=== PATIENT | male | born 1955 | race Caucasian/White ===

== ENCOUNTER 2019-08-06 06:48 | Inpatient (IN) | payer BC, MEDICAID, MEDICARE ==
[~2019-08-06] VITALS: Ht 177.8 cm; Wt 123.6 kg
[~2019-08-06 06:48] MED LIST: APIX2.5T PO; FERR325T28 PO; HYDR25TA4 PO; MULT-1085 PO; OSC500T PO; VALS40TA2 PO
[2019-08-06] MEDS ORDERED: normal saline 1000ml 1,000 ML IV ONE (07:29)
[2019-08-06] MEDS ORDERED: normal saline 1000ML IV soln IVB ONE (07:30)
[2019-08-06 08:27] LABS: BASOPHILS % (AUTO) 0.1 % (0-1); EOSINOPHILS % (AUTO) 0.1 % (0-6); HEMATOCRIT 44.1 % (42.0-52.0); LYMPHOCYTES # (AUTO) 0.4 X10'3 (1.1-4.8); LYMPHOCYTES % (AUTO) 2.9 % (21-51); MEAN CORPUSCULAR HEMOGLOBIN 30.2 PG (27.0-31.0); MEAN CORPUSCULAR HGB CONC 33.9 g/dL (33.0-36.5); MEAN CORPUSCULAR VOLUME 89.1 FL (78-98); MEAN PLATELET VOLUME 7.6 FL (7.4-10.4); MONOCYTES # (AUTO) 0.4 X10'3 (0-0.9); MONOCYTES % (AUTO) 3.2 % (2-12); NEUTROPHILS # (AUTO) 12.2 X10'3 (1.8-7.7); NEUTROPHILS % (AUTO) 93.7 % (42-75); PLATELET COUNT 198 X10'3 (140-440); RED BLOOD COUNT 4.95 X10'6 (4.70-6.10); RED CELL DISTRIBUTION WIDTH 14.2 % (11.5-14.5)
[2019-08-06 08:42] LABS: ALANINE AMINOTRANSFERASE 24 U/L (12-78); ALBUMIN 3.8 G/DL (3.4-5.0); ALBUMIN/GLOBULIN RATIO 1.1 (1.1-1.5); ALKALINE PHOSPHATASE 80 IU/L (46-116); ANION GAP 8 (8-16); ASPARTATE AMINO TRANSFERASE 16 U/L (10-37); BILIRUBIN,TOTAL 0.6 MG/DL (0.1-1.0); BLOOD UREA NITROGEN 21 MG/DL (7-18); BUN/CREATININE RATIO 18.6 (5.4-32.0); C-REACTIVE PROTEIN 0.49 MG/DL (0.0-0.5); CHLORIDE 105 MMOL/L (99-107); CREATININE 1.13 MG/DL (0.60-1.10); GLUCOSE 109 MG/DL (70-104); LIPASE 163 U/L (73-393); POTASSIUM 3.6 MMOL/L (3.5-5.1); SODIUM 141 MMOL/L (135-145); TOTAL CARBON DIOXIDE 28.5 MMOL/L (24-32); TOTAL PROTEIN 7.3 G/DL (6.4-8.2); eGFR 65 ML/MIN
[2019-08-06] MEDS ORDERED: ceFOXitin 1 GM/D5W 50mL IVPB 50 ML IV SCH (08:44)
[2019-08-06] MEDS ORDERED: metroNIDAZOLE-Flagyl 500mg/NS 100 ML IV SCH (08:45)
[2019-08-06 10:26] LABS: CLARITY,URINE CLEAR (Clear); COLOR,URINE YELLOW (Yellow); GLUCOSE, URINE NEGATIVE (Neg); KETONES,URINE NEGATIVE (Neg); LEUKOCYTE ESTERASE ,URINE NEGATIVE (Neg); NITRITES, URINE NEGATIVE (Neg); OCCULT BLOOD,URINE NEGATIVE (Neg); PROTEIN,URINE TRACE mg/dl (Neg)
[2019-08-06 10:27] LABS: UA COLLECTION TYPE CLN CATCH MIDSTREAM
[2019-08-06 10:41] LABS: MUCUS STRANDS MANY /LPF (Neg); SQUAMOUS EPITHELIAL CELL,UR MODERATE /LPF (FEW)
[2019-08-06 10:45] LABS: RBC,URINE 0-2 /HPF (0-2)
[2019-08-06 10:46] LABS: BACTERIA,URINE 2+ /HPF (Neg); CAL OXALATE CRYSTALS 1+ /HPF (NEGATIVE)
[2019-08-06] MEDS ORDERED: morphine 4 MG/ML inj SYRINge IV ONE (11:10)
[2019-08-06] MEDS ORDERED: metoclopramide 5 mg/ml inj IV ONE (11:10)
[2019-08-06] MEDS ORDERED: LOSA100T57 PO (12:44)
[2019-08-06] MEDS ORDERED: HCTZ25T PO (12:44)
[2019-08-06] MEDS ORDERED: mag hydrox/Alum hydrox/simeth 30ml oral suspension PO PRN (13:30)
[2019-08-06] MEDS ORDERED: ondansetron/PF 4mg/2ml inj IV PRN (13:30)
[2019-08-06] MEDS ORDERED: acetaminophen 325mg tablet PO PRN (13:30)
[2019-08-06] MEDS ORDERED: magnesium hydroxide 30ml (MOM) UD suspension PO PRN (13:30)
[2019-08-06] MEDS ORDERED: morphine 2 MG/ML inj. syringe IV PRN ×2 (13:30)
[2019-08-06] MEDS: normal saline 1000ml 1,000 ML IV SCH ×2 (14:35→19:55)
[2019-08-06] MEDS: levoFLOXACIN-Levaquin 750MG/D5 150 ML IV SCH (14:39)
--- NOTE | 2019-08-06 15:04 | NUR ---
RELIEVING RN FOR BREAK, PT IS RESTING QUIETLY ON ROBER, AT BEDSIDE, FLU SWAB DONE AND SENT TO LAB
--- NOTE | 2019-08-06 17:35 | NUR ---
Patient in room [facility]. I have received report from Shannon CEE and had the opportunity to ask questions and assume patient care.
--- NOTE | 2019-08-06 18:25 | NUR ---
Patient in room [facility]. I have received report from VARINDER CEE and had the opportunity to ask questions and assume patient care. Addendum: 08/06/19 at 1904 by Irasema Cavanaugh RN Amended: Links added.
[2019-08-06 19:00] VITALS: BP 122/62
--- NOTE | 2019-08-06 19:01 | NUR ---
Problems reprioritized. Patient report given, questions answered & plan of care reviewed with Irasema CEE.
[2019-08-06] MEDS: heparin, porcine 5000 units/ml vial SQ SCH (19:47)
[2019-08-06] MEDS: lactobacillus rhamnosus 10,000 MMU CELLS/CAPSULE PO SCH (19:47)
[2019-08-06] MEDS: metroNIDAZOLE-Flagyl 500mg/NS 100 ML IV SCH (19:54)
[2019-08-06] MEDS: diatr meglu/diatrizoate 30ml oral sol.-(3 dose) bottle PO SCH (22:17)
[2019-08-07] VITALS: BP 119/64
[2019-08-07] MEDS: metroNIDAZOLE-Flagyl 500mg/NS 100 ML IV SCH ×2 (01:28→07:12)
--- NOTE | 2019-08-07 04:30 | NUR ---
pt up to shower after saline locking iv.
[2019-08-07 05:19] LABS: BASOPHILS % (AUTO) 0.5 % (0-1); EOSINOPHILS # (AUTO) 0.2 X10'3 (0-0.9); EOSINOPHILS % (AUTO) 4.3 % (0-6); HEMATOCRIT 38.7 % (42.0-52.0); LYMPHOCYTES # (AUTO) 1.1 X10'3 (1.1-4.8); LYMPHOCYTES % (AUTO) 26.4 % (21-51); MEAN CORPUSCULAR HEMOGLOBIN 30.1 PG (27.0-31.0); MEAN CORPUSCULAR HGB CONC 33.6 g/dL (33.0-36.5); MEAN CORPUSCULAR VOLUME 89.6 FL (78-98); MEAN PLATELET VOLUME 7.6 FL (7.4-10.4); MONOCYTES # (AUTO) 0.3 X10'3 (0-0.9); MONOCYTES % (AUTO) 7.6 % (2-12); NEUTROPHILS # (AUTO) 2.5 X10'3 (1.8-7.7); NEUTROPHILS % (AUTO) 61.2 % (42-75); PLATELET COUNT 151 X10'3 (140-440); RED BLOOD COUNT 4.32 X10'6 (4.70-6.10); RED CELL DISTRIBUTION WIDTH 14.1 % (11.5-14.5); WHITE BLOOD COUNT 4.2 X10'3 (4.5-11.0)
[2019-08-07 05:25] LABS: ANION GAP 7 (8-16); BLOOD UREA NITROGEN 17 MG/DL (7-18); BUN/CREATININE RATIO 15.5 (5.4-32.0); CALCIUM 8.4 MG/DL (8.5-10.1); CHLORIDE 108 MMOL/L (99-107); GLUCOSE 91 MG/DL (70-104); POTASSIUM 3.5 MMOL/L (3.5-5.1); SODIUM 144 MMOL/L (135-145); TOTAL CARBON DIOXIDE 28.9 MMOL/L (24-32); eGFR 67 ML/MIN
--- NOTE | 2019-08-07 05:40 | NUR ---
Student documentation: I have reviewed and agree with all interventions, assessments performed and documented by YARIEL GASTELUM RN STUDENT.Student Medication Administration: For this medication-pass time frame, all medication were reviewed, dispensed, administered and documented per hospital policy by YARIEL BURROUGHS RN STUDENT. Addendum: 08/07/19 at 0542 by Irasema Cavanaugh RN Amended: Links added.
--- NOTE | 2019-08-07 06:00 | NUR ---
Problems reprioritized. Patient report given, questions answered & plan of care reviewed with Derrek Pittman. Addendum: 08/07/19 at 0601 by Irasema Cavanaugh RN Amended: Links added.
--- NOTE | 2019-08-07 06:30 | NUR ---
Patient in room [facility]. I have received report from COLEMAN Villalpando and had the opportunity to ask questions and assume patient care.
[2019-08-07] MEDS: diatr meglu/diatrizoate 30ml oral sol.-(3 dose) bottle PO SCH ×2 (07:11→10:30)
[2019-08-07] MEDS: lactobacillus rhamnosus 10,000 MMU CELLS/CAPSULE PO SCH (07:13)
[2019-08-07] MEDS: heparin, porcine 5000 units/ml vial SQ SCH (07:13)
[2019-08-07] MEDS: normal saline 1000ml 1,000 ML IV SCH (07:14)
[2019-08-07 08:00] VITALS: BP 133/69
[2019-08-07] MEDS ORDERED: HYDROchlorothiazide 25mg tablet PO SCH (08:00)
[2019-08-07] MEDS ORDERED: losartan 50mg tablet PO SCH (08:00)
[2019-08-07] MEDS: levoFLOXACIN-Levaquin 750MG/D5 150 ML IV SCH (08:42)
[2019-08-07] MEDS ORDERED: iohexol 300mg/ml 100ml inj. ONE (10:35)
[2019-08-07 12:00] VITALS: BP 159/78
--- NOTE | 2019-08-07 12:30 | NUR ---
MD notified regarding BP of 159/78, instructed to continue to monitor.
[2019-08-07] MEDS ORDERED: METR-159 PO (13:14)
[2019-08-07] MEDS ORDERED: LEVO500T89 PO (13:14)
[2019-08-07] MEDS ORDERED: LACT1CAP26 PO (13:14)
[2019-08-07] MEDS ORDERED: POLY17PO10 PO (13:15)
--- NOTE | 2019-08-07 14:18 | NUR ---
patient discharged home into the care of and daughter. Patient alert, oriented, and appropriate for discharge. Patient left with all belongings. [facility]. Patient verbalized understanding of discharge instructions and will follow up with primary care provider. Patient escorted down by a member of the staff via wheelchair into private vehicle. IV's removed, tele removed, copy of medicare sheet signed and placed into chart.
== END 2019-08-07 14:24 | disposition home or self-care (01) | DRG 392 ==
LOC: ER 06:49 → ED HOLD 13:28 → SUR 3N 16:55
PROVIDERS: ADMIT Family Medicine; ATTEND Family Medicine
DX: K52.9 Noninfective gastroenteritis and colitis, unspecified (principal); K57.30 Diverticulosis of large intestine without perforation or abscess without bleeding; E11.9 Type 2 diabetes mellitus without complications; I10 Essential (primary) hypertension; Z98.84 Bariatric surgery status
CPT/HCPCS: 36415; 74176; 74177; 80048; 80053; 81001; 82948; 83690; 85025; 85610; 86140; 87081; 87088; 87502; 87503; 96365; 99285; G0378; J0694; J1644; J1956; J2270; J2765; J3490; J7030; Q9963; Q9967

== ENCOUNTER 2021-03-11 17:42 | Emergency (ER) | payer BC, MEDICARE ==
[~2021-03-11] VITALS: Ht 177.8 cm; Wt 113.6 kg
[~2021-03-11 17:42] MED LIST changes: -APIX2.5T PO; -FERR325T28 PO; -HYDR25TA4 PO; +HYDR25TA5 PO; +LACT1CAP26 PO; +LOSA100T57 PO; -MULT-1085 PO; -OSC500T PO; -VALS40TA2 PO
[2021-03-11 18:42] LABS: BASOPHILS % (AUTO) 0.7 % (0-1); EOSINOPHILS % (AUTO) 0.1 % (0-6); HEMATOCRIT 46.1 % (42.0-52.0); HEMOGLOBIN 15.9 g/dl (14.0-17.9); LYMPHOCYTES # (AUTO) 0.4 X10'3 (1.1-4.8); MEAN CORPUSCULAR HEMOGLOBIN 30.9 PG (27.0-31.0); MEAN CORPUSCULAR HGB CONC 34.6 g/dL (33.0-36.5); MEAN CORPUSCULAR VOLUME 89.3 FL (78-98); MEAN PLATELET VOLUME 7.7 FL (7.4-10.4); MONOCYTES # (AUTO) 0.3 X10'3 (0-0.9); MONOCYTES % (AUTO) 9.7 % (2-12); NEUTROPHILS # (AUTO) 2.2 X10'3 (1.8-7.7); NEUTROPHILS % (AUTO) 76.5 % (42-75); PLATELET COUNT 118 X10'3 (140-440); RED BLOOD COUNT 5.16 X10'6 (4.70-6.10); RED CELL DISTRIBUTION WIDTH 13.7 % (11.5-14.5); WHITE BLOOD COUNT 2.9 X10'3 (4.5-11.0)
[2021-03-11] MEDS ORDERED: CASIRIVIMAB/IMDEVIMAB inject. 10 ML in normal saline 100ml IV soln 100 ML IV ONE (18:45)
[2021-03-11] MEDS ORDERED: acetaminophen 325mg tablet PO ONE (18:55)
[2021-03-11 18:57] LABS: ALANINE AMINOTRANSFERASE 35 U/L (12-78); ALBUMIN 3.6 G/DL (3.4-5.0); ALBUMIN/GLOBULIN RATIO 0.9 (1.1-1.5); ALKALINE PHOSPHATASE 90 IU/L (46-116); ANION GAP 7 (8-16); ASPARTATE AMINO TRANSFERASE 41 U/L (10-37); BLOOD UREA NITROGEN 32 MG/DL (7-18); BUN/CREATININE RATIO 20.8 (5.4-32.0); CALCIUM 8.5 MG/DL (8.5-10.1); CHLORIDE 100 MMOL/L (99-107); CREATININE 1.54 MG/DL (0.60-1.10); GLUCOSE 100 MG/DL (70-104); MAGNESIUM 1.9 MG/DL (1.5-2.4); SODIUM 137 MMOL/L (135-145); TOTAL CARBON DIOXIDE 29.9 MMOL/L (24-32); TOTAL PROTEIN 7.7 G/DL (6.4-8.2); eGFR 46 ML/MIN
--- NOTE | 2021-03-11 19:27 | NUR ---
RASHID STARTED, RN NEAR, MICRON FILTER USED
[2021-03-11] MEDS ORDERED: ondansetron 4mg rapidly disintigrating tab PO ONE (19:30)
[2021-03-11] MEDS ORDERED: normal saline 1000ML IV soln IV ONE (19:35)
[2021-03-11] MEDS ORDERED: POTASSIUM BICARB 20meq eff tab 20 MEQ TABLET.EFF PO ONE (19:35)
[2021-03-11] MEDS ORDERED: POTASSIUM BICARBONATE/CIT AC 10 MEQ TABLET.EFF PO ONE (19:50)
[2021-03-11 19:57] LABS: PLATELET ESTIMATE DECREASED; TOTAL CELLS COUNTED 100
[2021-03-11 19:58] LABS: SMUDGE CELLS 2+
[2021-03-11] MEDS ORDERED: CHOL10006 PO (21:37)
[2021-03-11 21:52] VITALS: BP 107/71
== END 2021-03-11 21:55 | disposition home or self-care (01) ==
LOC: ER 17:43
DX: U07.1 COVID-19 (principal); E87.6 Hypokalemia; E66.01 Morbid (severe) obesity due to excess calories; I10 Essential (primary) hypertension; Z98.890 Other specified postprocedural states; Z95.0 Presence of cardiac pacemaker; Z79.899 Other long term (current) drug therapy
CPT/HCPCS: 36415; 71045; 80053; 83605; 83735; 84145; 85007; 85025; 87040; 87635; 99285; C9803; J7030; M0243; Q0244; 99284